=== PATIENT | female | born 1950 | race Caucasian/White ===

== ENCOUNTER 2023-06-12 21:25 | Outpatient (CLI) | payer MEDICARE, SELFPAY ==
[2023-06-12 18:31] LABS: Basophils # 0.1 K/mm3 (0-0.2); Basophils % 0.7 % (0.1-2.0); Eosinophils # 0.1 K/mm3 (0.0-0.4); Hematocrit 40.1 % (37.0-47.0); Hemoglobin 13.5 g/dL (12.2-16.2); Lymphocytes # 1.9 K/mm3 (0.7-4.5); Lymphocytes % 25.8 % (10-50); Mean Corpuscular HGB Conc 33.8 g/dL (31.8-35.4); Mean Corpuscular Hemoglobin 32.8 pg (27.0-31.2); Monocytes # 0.3 K/mm3 (0.1-1.0); Monocytes % 3.7 % (1.7-9.3); Neutrophils # 5.1 K/mm3 (1.8-7.8); Neutrophils % 68.8 % (37.0-80.0); Platelet Count 203 K/mm3 (142-424); Red Blood Count 4.13 M/mm3 (4.20-5.40); Red Cell Distribution Width 13.4 % (11.5-17.5); White Blood Count 7.5 K/mm3 (4.8-10.8)
[2023-06-12 19:26] LABS: Hemoglobin A1C 5.7 % (4.0-6.0)
[2023-06-12 19:27] LABS: Alanine Aminotransferase 15 U/L (12-78); Anion Gap 11.2 mEq/L (5-15); Aspartate Amino Transferase 28 U/L (14-36); Bilirubin,Total 0.6 mg/dl (0.2-1.3); Blood Urea Nitrogen 12 mg/dl (7-17); Calcium 9.7 mg/dl (8.4-10.2); Carbon Dioxide 27 mmol/L (22.0-30.0); Chloride 104 mmol/L (98-107); Estimated Glomerular Filt Rate 61 ml/min (>60); GFR (African American) 74 ML/MIN (>60); Glucose 71 mg/dl (74-100); Potassium 4.2 mmoL/L (3.5-5.1); Sodium 138 mmol/L (136-145)
[2023-06-12 19:28] LABS: Albumin Level 4.4 g/dl (3.5-5.0); Albumin/Globulin Ratio 1.7 (1.1-1.8); Alkaline Phosphatase 66 U/L (38-126); Chol/HDL Ratio 3.3 (1-3.5); Cholesterol 141 mg/dl (140-200); Globulin 2.6 g/dL (1.3-3.2); HDL Cholesterol 43 mg/dl (40-60); Triglycerides 259 mg/dl (30-150); VLDL Cholesterol 52 mg/dL (0-40)
[2023-06-12 19:39] LABS: Direct LDL Cholesterol 46.78 mg/dL (100-129)
[2023-06-12 19:47] LABS: 25-OH Vitamin D, Total < 12.8 ng/mL (30-100)
[2023-06-12 19:58] LABS: Thyroid Stimulating Hormone 2.23 uIU/mL (0.465-4.68)
[2023-06-12 20:17] LABS: Vitamin B12 229 pg/mL (239-931)
== END 2023-06-12 23:59 ==
LOC: LAB.DROPOF 21:26
PROVIDERS: PCP Internal Medicine; Visit Provider Internal Medicine
DX: R53.83 Other fatigue (principal); E05.90 Thyrotoxicosis, unspecified without thyrotoxic crisis or storm; E55.9 Vitamin D deficiency, unspecified; E11.9 Type 2 diabetes mellitus without complications; E78.5 Hyperlipidemia, unspecified; E53.8 Deficiency of other specified B group vitamins
CPT/HCPCS: 80053; 80061; 82306; 82607; 83036; 84443; 85025